=== PATIENT | female | born 1950 | race Caucasian/White ===

== ENCOUNTER 2017-08-29 10:55 | Emergency (ER) | payer MEDICARE, MEDICAID ==
[~2017-08-29 10:55] MED LIST: AMOXICILLIN500 M1 PO; ASPIRIN325 MG PO; ATENOLOL25 MG PO; CALCIUM + D 5001 TAB PO; CIPRO500 MG PO; FLAGYL250 MG PO; KLOR-CON 1010 MEQ PO; LASIX20 MG PO; LIPITOR20 MG PO; LISINOPRIL/HCTZ1 TA2 PO; METFORMIN500 MG PO; MIRALAX17 GM/DOSE PO; MOTRIN800 MG PO; TYLENOL W/CODEI1 TA2 PO; VICODIN 500 MG-1 TAB PO
[2017-08-29 11:09] VITALS: BP 154/66
[2017-08-29 11:36] LABS: BASO % 0.4 % (0.0-1.0); EOS # 0.1 10*3/uL (0.0-0.4); EOS % 0.9 % (1.0-4.0); HEMATOCRIT 43.6 % (37.0-47.0); HEMOGLOBIN 14.1 g/dl (12.0-16.0); LYMPH # 1.7 10*3/uL (1.3-4.4); MEAN CELL VOLUME 91.6 fl (81.0-99.0); MEAN CORPUSCULAR HGB 29.6 pg (27.0-31.0); MEAN CORPUSCULAR HGB CONC 32.3 g/dl (33.0-37.0); MEAN PLATELET VOLUME 11.7 fl (9.6-12.3); MONO # 0.4 10*3/uL (0.1-1.0); MONO % 4.4 % (3.0-9.0); PLATELET COUNT AUTOMATED 129 10*3/uL (130-400); RED BLOOD COUNT 4.76 10*6/uL (4.10-5.10); RED CELL DISTRI WIDTH 15.3 % (0-14.5); WHITE BLOOD COUNT 9.2 10*3/uL (4.8-10.8)
[2017-08-29 11:40] LABS: BILIRUBIN NEGATIVE (NEGATIVE); BLOOD NEGATIVE (NEGATIVE); CLARITY CLEAR (CLEAR); COLOR YELLOW (YELLOW); GLUCOSE NEGATIVE (NEGATIVE); KETONE NEGATIVE (NEGATIVE); LEUKO ESTERASE NEGATIVE (NEGATIVE); NITRITE NEGATIVE (NEGATIVE); SPECIFIC GRAVITY <= 1.005 (1.005-1.030); UROBILINOGEN 0.2 E.U./dl (0.2-1.0)
[2017-08-29 11:52] LABS: ALBUMIN 3.8 gm/dl (3.1-4.5); ALKALINE PHOSPHATASE 91 U/L (45-117); BUN 16 mg/dl (7-24); CHLORIDE 104 mmol/L (98-107); CREATININE 0.84 mg/dL (0.55-1.02); LIPASE 139 U/L (73-393); POTASSIUM 3.7 mmol/L (3.5-5.1); SGOT/AST 11 IU/L (3-35); SGPT/ALT 20 U/L (12-78); SODIUM 141 mmol/L (136-145)
[2017-08-29 11:55] LABS: TROPONIN I < 0.015 ng/ml (<0.045)
[2017-08-29] MEDS ORDERED: NAPROSYN500 MG PO (12:33)
== END 2017-08-29 12:41 | disposition home or self-care (01) ==
LOC: ED 10:55
PROVIDERS: Physician Assistant
DX: M54.6 Pain in thoracic spine (principal); F17.200 Nicotine dependence, unspecified, uncomplicated; Z91.041 Radiographic dye allergy status; Z79.2 Long term (current) use of antibiotics; Z79.82 Long term (current) use of aspirin; Z79.899 Other long term (current) drug therapy; Z90.710 Acquired absence of both cervix and uterus; Z90.49 Acquired absence of other specified parts of digestive tract

== ENCOUNTER 2017-09-08 11:38 | Inpatient (IN) | payer MEDICARE ==
[~2017-09-08] VITALS: Ht 165.1 cm; Wt 93.5 kg
[2017-09-08] VITALS (8 sets, daily range): BP systolic 148–229; BP diastolic 65–121
--- NOTE | ~2017-09-08 | CON ---
[place], [place] REPORT OF CONSULTATION NAME: MICHELLE SHERWOOD UNIT #: [id number] ROOM: 424 DOCTOR: ROBIN MCDANIELSAURAV BIRTHDATE: [birth year] DOS: 09/08/2017 HISTORY OF PRESENT ILLNESS: A 67-year-old, I was consulted because of chest pain. The patient came in with severe worsening of dyspnea and chest pain this morning. The patient had a heart catheterization about 4 years ago, had a permanent pacemaker placed at that time. The patient still has some interscapular chest pain. No acute EKG changes suggestion of myocardial injury or ischemia. Hemodynamically appears to be stable. PAST MEDICAL HISTORY: Significant for complete heart block with permanent pacemaker, hypertension, hyperlipidemia, and diabetes mellitus. HOME MEDICATIONS: Aspirin, atenolol, metformin, ciprofloxacin, metronidazole, ibuprofen. PAST SURGICAL HISTORY: ____ cervical fusion, hysterectomy, cholecystectomy. FAMILY HISTORY: Positive for diabetes, hypertension and cancer. ALLERGIES: IVP DYE. SOCIAL HISTORY: Former smoker. REVIEW OF SYSTEMS: Denies any chest discomfort, ____ back pain, no nausea, no vomiting, no GI issues, no neurological issues. Does have some shortness of breath. PHYSICAL EXAMINATION: GENERAL: The patient is alert, oriented x 3. VITAL SIGNS: Blood pressure is 110/70. The patient is in sinus rhythm. Repeat blood pressure initially was 160/98. NECK: Supple, no JVD. LUNGS: Clear. HEART: Sounds are regular. ABDOMEN: Soft, nontender. NEUROLOGIC: Stable. LABORATORY AND DIAGNOSTIC DATA: Within normal limits. Troponins have been negative. INR is normal. Hemoglobin is 13.6, hematocrit is 42.2. Chest x-ray is normal. IMPRESSION: The patient admitted with atypical chest discomfort, interscapular pain with a history of permanent pacemaker, previous catheterization was mild disease. RECOMMENDATIONS: Because of we have not done any test for almost 40 years, continue with the present medication. Monitor the blood pressure closely. Add nitrates to the current regimen if the blood pressure does not go away. We will schedule a stress test as an outpatient. Agree with continuing the metoprolol and I will follow up. [place], [place] REPORT OF CONSULTATION NAME: MICHELLE SHERWOOD UNIT #: [id number] ROOM: 424 DOCTOR: SAURAV KELLY MD BIRTHDATE: [birth year] SAURAV KELLY MD CM:CONSTR:REPORT OF CONSULTATION [id number] 09/09/17 0634 interface
[~2017-09-08 11:38] MED LIST changes: +ASPIR 8181 MG PO; -ASPIRIN325 MG PO; +NAPROSYN500 MG PO
[2017-09-08 12:00] LABS: BASO % 0.5 % (0.0-1.0); EOS # 0.2 10*3/uL (0.0-0.4); EOS % 1.8 % (1.0-4.0); HEMATOCRIT 42.2 % (37.0-47.0); HEMOGLOBIN 13.6 g/dl (12.0-16.0); LYMPH % 24.7 % (27.0-41.0); MEAN CELL VOLUME 91.5 fl (81.0-99.0); MEAN CORPUSCULAR HGB 29.5 pg (27.0-31.0); MEAN CORPUSCULAR HGB CONC 32.2 g/dl (33.0-37.0); MEAN PLATELET VOLUME 11.2 fl (9.6-12.3); MONO # 0.4 10*3/uL (0.1-1.0); MONO % 4.6 % (3.0-9.0); NEUT # 5.6 10*3/uL (2.3-7.9); NEUT % 68.2 % (47.0-73.0); PLATELET COUNT AUTOMATED 131 10*3/uL (130-400); RED BLOOD COUNT 4.61 10*6/uL (4.10-5.10); RED CELL DISTRI WIDTH 15.3 % (0-14.5); WHITE BLOOD COUNT 8.2 10*3/uL (4.8-10.8)
[2017-09-08 12:10] LABS: INTERNATIONAL NORM RATIO 1.1 (2.0-3.5)
[2017-09-08 12:16] LABS: ALBUMIN 3.7 gm/dl (3.1-4.5); ALKALINE PHOSPHATASE 87 U/L (45-117); BUN 20 mg/dl (7-24); CHLORIDE 105 mmol/L (98-107); POTASSIUM 3.6 mmol/L (3.5-5.1); SGOT/AST 12 IU/L (3-35); SGPT/ALT 19 U/L (12-78); SODIUM 143 mmol/L (136-145); TOTAL PROTEIN 7.3 gm/dL (6.4-8.2)
[2017-09-08 12:22] LABS: TROPONIN I < 0.015 ng/ml (<0.045)
--- NOTE | 2017-09-08 14:37 | NUR ---
A 67, admitted to , under the services of EVAN Cuba DO with a diagnosis of CHEST PAIN AND HYPERTENSIVE EMERGENCY. Chief complaint is INCREASING SHORTNESS OF BREATH, CHEST PAIN W/O RADIATION AND MID TO LEFT UPPER BACK PAIN. Patient arrived via stretcher from ER. Monitor applied. Initial assessment completed. Vital signs taken and recorded. EVAN CUBA DO notified of admission to the unit. Orders received. See assessment for past medical history, medications and allergies. Patient and/or family oriented to unit. [facility] visitation policy reviewed. Clothing/patient valuable form completed. PIERCE CRUZ
[2017-09-08] MEDS ORDERED: TRAMADOL HCL50 MG PO (15:09)
[2017-09-08] MEDS ORDERED: CYCLOBENZAPRINE10 MG PO (15:11)
[2017-09-08] MEDS ORDERED: PROAIR HFA8.5 GM INH (15:18)
[2017-09-08] MEDS ORDERED: LISINOPRIL20 MG PO (15:20)
[2017-09-08] MEDS ORDERED: FLONASE ALLERG9.9 ML NAS (15:22)
[2017-09-08] MEDS ORDERED: FUROSEMIDE20 M1 PO (15:23)
[2017-09-08] MEDS ORDERED: FLOVENT HFA12 GM INH (15:23)
[2017-09-08] MEDS ORDERED: GLIPIZIDE5 MG PO (15:24)
[2017-09-08] MEDS ORDERED: ALLOPURINOL300 MG PO (15:24)
[2017-09-08] MEDS ORDERED: POTASSIUM CHLO10 MEQ PO (15:25)
--- NOTE | 2017-09-08 16:15 | NUR ---
Dr. Small was notified and in to evaulate pt. Orders were recieved for outpt. lexiscan / cardiolyte stress test . pending sale to [facility] was called and med rec was updated . Dr. Yun aware.
--- NOTE | 2017-09-08 20:08 | NUR ---
PT C/O UPPER BACK PAIN. PT GIVEN NORCO. WILL REASSESS PAIN IN 30 MIN
--- NOTE | 2017-09-08 21:00 | NUR ---
PT STATES THAT PAIN IS BETTER AFTER NORCO. NO OTHER CONCERNS
[2017-09-09] VITALS: BP 156/74
[2017-09-09 05:43] LABS: BASO # 0.1 10*3/uL (0.0-0.1); BASO % 0.7 % (0.0-1.0); EOS # 0.1 10*3/uL (0.0-0.4); EOS % 1.9 % (1.0-4.0); HEMOGLOBIN 12.7 g/dl (12.0-16.0); LYMPH # 1.3 10*3/uL (1.3-4.4); LYMPH % 18.4 % (27.0-41.0); MEAN CELL VOLUME 92.9 fl (81.0-99.0); MEAN CORPUSCULAR HGB 30.2 pg (27.0-31.0); MEAN CORPUSCULAR HGB CONC 32.6 g/dl (33.0-37.0); MEAN PLATELET VOLUME 11.7 fl (9.6-12.3); MONO # 0.4 10*3/uL (0.1-1.0); MONO % 5.9 % (3.0-9.0); NEUT # 5.3 10*3/uL (2.3-7.9); NEUT % 72.8 % (47.0-73.0); PLATELET COUNT AUTOMATED 117 10*3/uL (130-400); RED CELL DISTRI WIDTH 15.3 % (0-14.5); WHITE BLOOD COUNT 7.3 10*3/uL (4.8-10.8)
[2017-09-09 06:13] LABS: BUN 20 mg/dl (7-24); CHLORIDE 104 mmol/L (98-107); CHOLESTEROL 114 mg/dL (<200); CREATININE 0.78 mg/dL (0.55-1.02); HDL CHOLESTEROL 36 mg/dl (40-60); LDL CHOLESTEROL 61 mg/dL (9-159); SODIUM 142 mmol/L (136-145); TRIGLYCERIDES 84 mg/dl (<150); VLDL CHOLESTEROL 17 mg/dL (6-40)
[2017-09-09 06:17] LABS: ACT PARTIAL THROMBO TIME 25.2 SECONDS (20.8-31.5); INTERNATIONAL NORM RATIO 1.1 (2.0-3.5)
[2017-09-09 07:16] LABS: VITAMIN D, 25-HYDROXY 36.1 ng/mL (30-100)
[2017-09-09 08:00] VITALS: BP 152/74
--- NOTE | 2017-09-09 10:01 | NUR ---
PT REPORTS BACK PAIN 05/08. TREATED WITH FLEXERIL.
--- NOTE | 2017-09-09 11:00 | NUR ---
PRN PO FLEXERIL EFFECTIVE, PER PATIENT.
--- NOTE | 2017-09-09 13:12 | NUR ---
Discharge instructions reviewed with patient/family. Patient receptive and verbalizes understanding. Follow-up care arranged. Written instructions given to patient/family. ANALI JEAN
--- NOTE | 2017-09-09 13:21 | NUR ---
PATIENT DISCHARGED TO FRONT LOBBY BY WHEELCHAIR, ACCOMPANIED BY [facility], FOR TRANSPORT HOME BY PRIVATE VEHICLE.
--- NOTE | 2017-09-11 09:02 | NUR ---
DR. KELLY'S OFFICE NOTIFIED STRESS TEST TO BE SCHEDULED FOR 09/12/17 AN OUTPATIENT. PT PLACED ON SCHEDULE WITH CENTRAL SCHEDULING.
== END 2017-09-09 13:21 | disposition home or self-care (01) | DRG 313 ==
LOC: ED 11:38 → 4E 13:31 → EDHOLD 13:31 → 4E 13:53
PROVIDERS: Internal Medicine; Nurse Practitioner Family; ADMIT Internal Medicine
DX: R07.89 Other chest pain (principal); E11.649 Type 2 diabetes mellitus with hypoglycemia without coma; I16.1 Hypertensive emergency; M54.6 Pain in thoracic spine; E78.5 Hyperlipidemia, unspecified; W18.39XA Other fall on same level, initial encounter; E66.01 Morbid (severe) obesity due to excess calories; M10.9 Gout, unspecified; Z71.6 Tobacco abuse counseling; Z95.0 Presence of cardiac pacemaker; Z72.0 Tobacco use; Z68.34 Body mass index [BMI] 34.0-34.9, adult; Z91.041 Radiographic dye allergy status; Z79.2 Long term (current) use of antibiotics; Z79.82 Long term (current) use of aspirin; Z79.84 Long term (current) use of oral hypoglycemic drugs; Z79.899 Other long term (current) drug therapy; Z90.49 Acquired absence of other specified parts of digestive tract; Z90.710 Acquired absence of both cervix and uterus; Z83.3 Family history of diabetes mellitus; Z82.49 Family history of ischemic heart disease and other diseases of the circulatory system; Z80.0 Family history of malignant neoplasm of digestive organs; Y93.89 Activity, other specified; Y92.89 Other specified places as the place of occurrence of the external cause; Y99.8 Other external cause status

== ENCOUNTER → 2017-09-12 | Outpatient (CLI) | payer MEDICARE, MEDICAID ==
[~2017-09-12] MED LIST changes: +ALLOPURINOL300 MG PO; +CYCLOBENZAPRINE10 MG PO; +FLONASE ALLERG9.9 ML NAS; +FLOVENT HFA12 GM INH; +FUROSEMIDE20 M1 PO; +GLIPIZIDE5 MG PO; +LISINOPRIL20 MG PO; +POTASSIUM CHLO10 MEQ PO; +PROAIR HFA8.5 GM INH; +TRAMADOL HCL50 MG PO
--- NOTE | ~2017-09-12 | ST ---
[place], [place] EXERCISE STRESS TEST REPORT NAME: MICHELLE SHERWOOD UNIT #: [id number] ROOM: DOCTOR: SAURAV KELLY MD BIRTHDATE: [birth year] DOS: LEXISCAN PORTION OF THE LEXISCAN CARDIOLITE. Baseline cardiogram, sinus rhythm are paced rhythm. Ventricular pair dependency normal sensing. The patient had a 0.4 mg Lexiscan, duration of 10 seconds. The patient with Lexiscan has shortness of breath. The patient went into paced rhythm. Blood pressure and heart rate is normal. No obvious chest discomfort. FINAL IMPRESSION: Indeterminate test secondary to the underlying paced rhythm. Permanent pacemaking with Lexiscan. No chest pain with Lexiscan. Blood pressure and heart rate response was normal. Nuclear images will be reported separately. SAURAV KELLY MD CM:STRESS:EXERCISE STRESS TEST REPORT [id number] SAURAV KELLY MD
--- NOTE | 2017-09-12 07:17 | NUR ---
INFORMED CONSENT SIGNED FOR LEXISCAN STRESS TEST WITH DR. KELLY. RESTING EKG ATRIAL PACED, HR 78, BP 154/82. PULSE OX 91% AND INSPIRATORY AND EXSPIRATORY WHEEZES NOTED THROUGHOUT. COMPLETED ONE MINUTE OF LEXISCAN PROTOCOL RECEIVING LEXISCAN 0.4MG OVER 10 SECONDS. DUAL PACING NOTED WITH NO ST CHANGES. PT C/O SOB. LAST RECOVERY HR 60, BP 130/78. WAITING NUCLEAR SCANNING IN STABLE CONDITION.
== END | disposition home or self-care (01) ==
LOC: CARD 02:52
DX: R07.89 Other chest pain (principal)

== ENCOUNTER → 2017-12-16 | Outpatient (CLI) | payer MEDICARE ==
[2017-12-16 08:55] LABS: BASO # 0.1 10*3/uL (0.0-0.1); BASO % 0.6 % (0.0-1.0); EOS # 0.2 10*3/uL (0.0-0.4); EOS % 2.6 % (1.0-4.0); HEMATOCRIT 44.9 % (37.0-47.0); LYMPH # 1.6 10*3/uL (1.3-4.4); LYMPH % 20.1 % (27.0-41.0); MEAN CELL VOLUME 92.8 fl (81.0-99.0); MEAN CORPUSCULAR HGB 28.9 pg (27.0-31.0); MEAN CORPUSCULAR HGB CONC 31.2 g/dl (33.0-37.0); MEAN PLATELET VOLUME 12.6 fl (9.6-12.3); MONO # 0.4 10*3/uL (0.1-1.0); MONO % 4.8 % (3.0-9.0); NEUT # 5.8 10*3/uL (2.3-7.9); NEUT % 71.5 % (47.0-73.0); PLATELET COUNT AUTOMATED 136 10*3/uL (130-400); RED BLOOD COUNT 4.84 10*6/uL (4.10-5.10); RED CELL DISTRI WIDTH 15.6 % (0-14.5); WHITE BLOOD COUNT 8.1 10*3/uL (4.8-10.8)
[2017-12-16 08:56] LABS: ALBUMIN 3.8 gm/dl (3.1-4.5); ALKALINE PHOSPHATASE 83 U/L (45-117); BUN 17 mg/dl (7-24); CHLORIDE 104 mmol/L (98-107); CHOLESTEROL 125 mg/dL (<200); CREATININE 0.79 mg/dL (0.55-1.02); HDL CHOLESTEROL 47 mg/dl (40-60); LDL CHOLESTEROL 60 mg/dL (9-159); POTASSIUM 4.6 mmol/L (3.5-5.1); SGOT/AST 15 IU/L (3-35); SGPT/ALT 21 U/L (12-78); SODIUM 143 mmol/L (136-145); TOTAL PROTEIN 7.6 gm/dL (6.4-8.2); TRIGLYCERIDES 92 mg/dl (<150); VLDL CHOLESTEROL 18 mg/dL (6-40)
== END | disposition home or self-care (01) ==
LOC: LAB 07:50
PROVIDERS: Registered Nurse Flight
DX: E11.9 Type 2 diabetes mellitus without complications (principal); E78.5 Hyperlipidemia, unspecified

== ENCOUNTER → 2018-05-16 | Outpatient (CLI) | payer MEDICARE | END | disposition home or self-care (01) | LOC: MAMMO 05-09 09:56 | DX: Z12.31 Encounter for screening mammogram for malignant neoplasm of breast (principal); R92.1 Mammographic calcification found on diagnostic imaging of breast ==

== ENCOUNTER → 2018-07-17 | Outpatient (CLI) | payer MEDICARE ==
[2018-07-17 09:49] LABS: HEMATOCRIT 43.1 % (37.0-47.0); HEMOGLOBIN 13.5 g/dl (12.0-16.0); MEAN CELL VOLUME 93.5 fl (81.0-99.0); MEAN CORPUSCULAR HGB 29.3 pg (27.0-31.0); MEAN CORPUSCULAR HGB CONC 31.3 g/dl (33.0-37.0); MEAN PLATELET VOLUME 11.5 fl (9.6-12.3); RED BLOOD COUNT 4.61 10*6/uL (4.10-5.10); RED CELL DISTRI WIDTH 15.7 % (0-14.5); WHITE BLOOD COUNT 7.8 10*3/uL (4.8-10.8)
[2018-07-17 10:34] LABS: ALBUMIN 3.6 gm/dl (3.1-4.5); ALKALINE PHOSPHATASE 80 U/L (45-117); BUN 15 mg/dl (7-24); CHLORIDE 108 mmol/L (98-107); CHOLESTEROL 121 mg/dL (<200); CREATININE 0.79 mg/dL (0.55-1.02); HDL CHOLESTEROL 44 mg/dl (40-60); LDL CHOLESTEROL 64 mg/dL (9-159); POTASSIUM 4.3 mmol/L (3.5-5.1); SGOT/AST 8 IU/L (3-35); SGPT/ALT 16 U/L (12-78); SODIUM 144 mmol/L (136-145); TOTAL PROTEIN 7.3 gm/dL (6.4-8.2); TRIGLYCERIDES 67 mg/dl (<150); VLDL CHOLESTEROL 13 mg/dL (6-40)
== END | disposition home or self-care (01) ==
LOC: LAB 09:13
PROVIDERS: Registered Nurse Flight
DX: E78.5 Hyperlipidemia, unspecified (principal); E11.9 Type 2 diabetes mellitus without complications

== ENCOUNTER → 2019-06-10 | Outpatient (CLI) | payer MEDICARE ==
[2019-06-10 11:41] LABS: BUN 19 mg/dl (7-24); CHLORIDE 106 mmol/L (98-107); CREATININE 0.86 mg/dL (0.55-1.02); POTASSIUM 4.4 mmol/L (3.5-5.1); SODIUM 143 mmol/L (136-145)
== END | disposition home or self-care (01) ==
LOC: LAB 09:58 → US 10:00
PROVIDERS: Registered Nurse Flight
DX: R60.0 Localized edema (principal)

== ENCOUNTER → 2019-06-13 | Outpatient (CLI) | payer MEDICARE ==
[2019-06-13 12:00] LABS: CHOLESTEROL 132 mg/dL (<200); HDL CHOLESTEROL 45 mg/dl (40-60); LDL CHOLESTEROL 69 mg/dL (9-159); TRIGLYCERIDES 89 mg/dl (<150); VLDL CHOLESTEROL 18 mg/dL (6-40)
== END | disposition home or self-care (01) ==
LOC: LAB 10:41
PROVIDERS: Registered Nurse Flight
DX: M25.512 Pain in left shoulder (principal); E11.9 Type 2 diabetes mellitus without complications; E78.5 Hyperlipidemia, unspecified

== ENCOUNTER 2019-09-09 12:52 | Emergency (ER) | payer MEDICARE ==
[~2019-09-09] VITALS: Ht 170.1 cm; Wt 98.9 kg
[2019-09-09 12:54] VITALS: BP 150/65
[2019-09-09] MEDS ORDERED: METHOCARBAMOL500 M1 PO (15:13)
[2019-09-09] MEDS ORDERED: MEDROL DOSEPAK4 MG PO (15:13)
== END 2019-09-09 15:17 | disposition home or self-care (01) ==
LOC: ED 12:52
DX: S39.012A Strain of muscle, fascia and tendon of lower back, initial encounter (principal); G89.29 Other chronic pain; M25.551 Pain in right hip; E11.9 Type 2 diabetes mellitus without complications; I10 Essential (primary) hypertension; I25.10 Atherosclerotic heart disease of native coronary artery without angina pectoris; E78.00 Pure hypercholesterolemia, unspecified; F17.200 Nicotine dependence, unspecified, uncomplicated; Z91.041 Radiographic dye allergy status; Z79.82 Long term (current) use of aspirin; Z79.899 Other long term (current) drug therapy; X58.XXXA Exposure to other specified factors, initial encounter; Y93.89 Activity, other specified; Y92.89 Other specified places as the place of occurrence of the external cause; Y99.8 Other external cause status

== ENCOUNTER → 2019-10-07 | Outpatient (CLI) | payer MEDICARE ==
[~2019-10-07] MED LIST changes: +MEDROL DOSEPAK4 MG PO; +METHOCARBAMOL500 M1 PO
[2019-10-07 10:51] LABS: BASO % 0.4 % (0.0-1.0); EOS # 0.2 10*3/uL (0.0-0.4); EOS % 1.5 % (1.0-4.0); HEMATOCRIT 43.5 % (37.0-47.0); HEMOGLOBIN 14.1 g/dl (12.0-16.0); LYMPH # 1.8 10*3/uL (1.3-4.4); MEAN CELL VOLUME 93.5 fl (81.0-99.0); MEAN CORPUSCULAR HGB 30.3 pg (27.0-31.0); MEAN CORPUSCULAR HGB CONC 32.4 g/dl (33.0-37.0); MEAN PLATELET VOLUME 11.7 fl (9.6-12.3); MONO # 0.5 10*3/uL (0.1-1.0); MONO % 4.6 % (3.0-9.0); NEUT # 8.2 10*3/uL (2.3-7.9); PLATELET COUNT AUTOMATED 220 10*3/uL (130-400); RED BLOOD COUNT 4.65 10*6/uL (4.10-5.10); RED CELL DISTRI WIDTH 14.6 % (0-14.5); WHITE BLOOD COUNT 10.8 10*3/uL (4.8-10.8)
[2019-10-07 11:20] LABS: BUN 17 mg/dl (7-24); CHLORIDE 105 mmol/L (98-107); POTASSIUM 4.3 mmol/L (3.5-5.1); SODIUM 139 mmol/L (136-145)
[2019-10-07 11:31] LABS: ALKALINE PHOSPHATASE 93 U/L (45-117); CHOLESTEROL 128 mg/dL (<200); CREATININE 0.88 mg/dL (0.55-1.02); FREE T4 1.14 ng/dl (0.76-1.46); HDL CHOLESTEROL 44 mg/dl (40-60); LDL CHOLESTEROL 68 mg/dL (9-159); SGOT/AST 10 IU/L (3-35); SGPT/ALT 22 U/L (12-78); TOTAL PROTEIN 7.8 gm/dL (6.4-8.2); TRIGLYCERIDES 79 mg/dl (<150); URIC ACID 4.3 mg/dL (2.6-6.0); VLDL CHOLESTEROL 16 mg/dL (6-40)
[2019-10-07 12:51] LABS: VITAMIN D, 25-HYDROXY 42.2 ng/mL (30-100)
== END | disposition home or self-care (01) ==
LOC: LAB 09:43
PROVIDERS: Internal Medicine
DX: M1A.9XX0 Chronic gout, unspecified, without tophus (tophi) (principal); E11.9 Type 2 diabetes mellitus without complications; I10 Essential (primary) hypertension; E78.2 Mixed hyperlipidemia; E55.9 Vitamin D deficiency, unspecified